=== PATIENT | male | born 1985 | race Caucasian/White ===

== ENCOUNTER 2016-10-29 10:48 | Emergency (ER) | payer SELFPAY ==
[~2016-10-29] VITALS: Ht 182.9 cm; Wt 82.0 kg
[~2016-10-29 10:48] MED LIST: Z.0.NO CURRENT MEDS
[2016-10-29 10:50] VITALS: BP 125/89; PULSE 64; RESP 12; TEMP 97.5; O2SAT 99
--- NOTE | 2016-10-29 11:34 | PD ---
HPI Chief Complaint: ENT Complaint Time Seen by Provider: 11:34 Travel History International Travel<30 days: No Contact w/Intl Traveler<30days: No Traveled to known affect area: No History of Present Illness HPI 22-year-old male presents emergency Department with complaint of nose pain after being hit in the nose with a softball last night. Denies loss of consciousness. Said his nose bled minimally. Bilateral nares are patent. Denies change in vision. Took Advil last night with good relief of pain. Has not tried any other treatments to alleviate his symptoms. Denies headache, lightheadedness, dizziness, change in mentation, slurred speech, nausea, vomiting. Denies focal deficits or weakness. Dr. garcia is primary care. No known allergies. History of asthma. No other modifying factors or associated signs and symptoms. PFSH Past Medical History Medical History: Denies Significant Hx Asthma: Yes Respiratory: Yes (asthma) Tetanus Vaccination: < 5 Years Past Surgical History Other Surgery: Yes (HERNIA REPAIR) Social History Alcohol Use: No Tobacco Use: No Substance Use: No Allergies-Medications (Allergen,Severity, Reaction): Coded Allergies: No Known Allergies (Verified , 10/29/16) Reported Meds & Prescriptions Reported Meds & Active Scripts Active Ibuprofen 800 Mg Tab 800 Mg PO Q6HR PRN Reported No Current Meds (Miscellaneous Medication) Misc Review of Systems Except as stated in HPI: all other systems reviewed are Neg Physical Exam Narrative GENERAL: Well-nourished, well-developed male patient, in no acute distress SKIN: Warm and dry. HEAD: Atraumatic. Normocephalic. No facial or scalp abrasions or lacerations noted. EYES: Pupils equal and round at 3 mm with brisk reaction. No scleral icterus. No injection or drainage. Right raccoon eye medial lower lid; tenderness elicited to this area. No orbital tenderness on palpation to the right upper eye or left eye ENT: Mucosa pink and moist. No erythema or exudates. No uvular edema. No uvular , palatal, or tonsillar deviation. Airway patent. Nares without nasal blood, purulent drainage or septal hematoma. No rhinorrhea. Nares patent bilaterally. Nasal bridge appears straight. Nose with minimal edema and with tenderness on palpation. EARS: Bilateral pinnae and external canals appear within normal limits. Bilateral tympanic membranes without erythema, dullness, hemotympanum or perforation. No otorrhea. No moon signs. NECK: Trachea midline. No lymphadenopathy. Moving freely. Active rotation of the neck greater than 45 left and right. No obvious deformities. CHEST: No retractions or use of accessory muscles. CARDIOVASCULAR: Regular rate. RESPIRATORY: No accessory muscle use. GASTROINTESTINAL: flat. MUSCULOSKELETAL: No obvious deformities. No clubbing. No cyanosis. No edema. NEUROLOGICAL: Awake and alert. Oriented 3. No obvious cranial nerve deficits. Motor grossly within normal limits. Normal speech. Moves all extremities. 5/5 strength to all extremities. Sensory intact. PSYCHIATRIC: Appropriate mood and affect; insight and judgment normal. Data Data Last Documented VS Vital Signs Date Time Temp Pulse Resp B/P Pulse Ox O2 Delivery O2 Flow Rate FiO2 10/29/16 10:50 97.5 64 12 125/[address] Facial Bones W/O Iv Cont (10/29/16 ) Mandatory Outpatient Referral (10/29/16 14:21) MDM Medical Decision Making Medical Screen Exam Complete: Yes Emergency Medical Condition: Yes Medical Record Reviewed: Yes Differential Diagnosis Nose fracture, facial contusion, nose contusion Narrative Course 30-year-old male with nose injury after being hit with a softball in the nose. Denies loss of consciousness.The patient admits to hitting their head, but denies loss of consciousness. Denies nausea, vomiting. On physical exam the patient is without raccoon eyes, moon signs, rhinorrhea, or hemotympanum. I do not suspect open or depressed skull fracture, and the patient has no signs of basilar skull fracture. [place] CT Head Injury Rule suggests a head CT is not necessary for this patient and clears the patient for head injury without imaging. Bilateral nares are patent. Right eye with minimal ecchymosis. I offered the patient a nonnarcotic for pain and he declined at this time. CT facial bones ordered. 1419: CT facial bones concludes There is fracturing of the anterior and right lateral aspect of the nasal bones; The more posterior fracture at the base of the right nasal bone is displaced by only 1 mm. Mandatory outpatient referral ordered, as patient does not have insurance. Patient instructed to follow up with maxillofacial. Ibuprofen prescribed for home. Patient is medically cleared and stable for discharge. Discussed reasons to return to the emergency department. Instructed patient to follow up with primary care provider. Patient agrees with treatment plan. The patients vital signs are stable and the patient is stable for outpatient follow-up and treatment. Patient discharged home, stable and in no acute distress. Diagnosis Primary Impression: Fractured nose Qualified Code: S02.2XXA - Closed fracture of nasal bone, initial encounter Referrals: Tc Cristobal DDS Primary Care Physician Patient Instructions: General Instructions, Nasal Fracture (ED) Additional Instructions: Ibuprofen or Tylenol as directed as needed for pain and information Ice to affected area to decrease pain and inflammation Follow-up with primary care provider Follow-up with a maxillofacial surgeon Return to the emergency department immediately with worsening of symptoms Med/Other Pt SpecificInfo: Prescription(s) given Scripts Ibuprofen 800 Mg [id number] Mg PO Q6HR PRN (PAIN) #30 TAB Ref 0 Prov:Snow Antonio 10/29/16 Disposition: 01 DISCHARGE HOME Condition: Stable Snow Antonio Oct 29, 2016 11:34
[2016-10-29] MEDS ORDERED: IBUP800T23 PO (12:12)
--- NOTE | 2016-10-29 14:12 | RADRPT ---
EXAM DATE/TIME: 10/29/2016 12:48 [facility] COMPARISON: No previous studies available for comparison. INDICATIONS : Hit in face by ball, possible broken nose. RADIATION DOSE: 35.01 CTDIvol (mGy) MEDICAL HISTORY : None SURGICAL HISTORY : None. ENCOUNTER: Initial ACUITY: 1 day PAIN SCORE: 6/10 LOCATION: [facility] face TECHNIQUE: Volumetric scanning of the facial bones was performed. Using automated exposure contr ol and adjustment of the mA and/or kV according to patient size, radiation dose was kept as low as re asonably achievable to obtain optimal diagnostic quality images. FINDINGS: There is fracturing of the anterior and right lateral aspect of the nasal bones. The m ore posterior fracture at the base of the right nasal bone is displaced by only 1 mm. No other fract ure is seen. The orbits appear intact. There is focal mucosal disease at the left maxillary sinus. CONCLUSION: Fracturing of the anterior and right lateral aspect of the nasal bones with minimal d isplacement. Guero Ya MD on October 29, 2016 at 13:58 Board Certified Radiologist. This report was verified electronically.
== END 2016-10-29 14:35 | disposition home or self-care (01) ==
LOC: NEPB 10:48
DX: S02.2XXA Fracture of nasal bones, initial encounter for closed fracture (principal); W21.07XA Struck by softball, initial encounter; Y93.9 Activity, unspecified; Y92.9 Unspecified place or not applicable
CPT/HCPCS: 70486